=== PATIENT | female | born 1975 | race African-American/Black ===

== ENCOUNTER 2018-07-02 19:00 | Emergency (ER) | payer SELFPAY ==
[2018-07-02] MEDS ORDERED: ASPIRIN 81 MG CHEWABLE CTB ONE (19:06)
[2018-07-02] MEDS ORDERED: ASPIRIN 325 MG TAB PO ONE (19:06)
[2018-07-02 19:08] VITALS: TEMP 98.8
[2018-07-02 19:28] LABS: BASOPHILS % (AUTO) 1 % (0-3); EOSINOPHILS % (AUTO) 2 % (0-9); HEMATOCRIT 42 % (35-47); HEMOGLOBIN 13.4 gm/dl (12.0-15.5); LYMPHOCYTES % (AUTO) 42.1 % (10-50); MEAN CORPUSCULAR HEMOGLOBIN 29.4 pg (27.0-32.0); MEAN CORPUSCULAR HGB CONC 32.2 gm/dl (32.0-36.0); MEAN CORPUSCULAR VOLUME 91 fL (81-99); MONOCYTES % (AUTO) 9.6 % (0-12); NEUTROPHILS % (AUTO) 45.7 % (37-80)
[2018-07-02] MEDS: SODIUM CHLORIDE 0.9% FLUSH 10 ML SOL IV PRN ×2 (19:37→20:41)
[2018-07-02 19:39] LABS: ALBUMIN 3.8 gm/dl (3.4-5.0); ALKALINE PHOSPHATASE 56 IU/L (46-116); ALT 21 IU/L (14-63); AST 16 IU/L (15-37); BILIRUBIN,TOTAL 0.3 mg/dl (0.2-1.0); BLOOD UREA NITROGEN 10 mg/dl (7-18); CALCIUM 8.5 mg/dl (8.5-10.1); CARBON DIOXIDE 24.6 mEq/L (21-32); CHLORIDE 103 mMol/L (98-107); CREATININE 0.91 mg/dl (0.60-1.00); GLUCOSE 101 mg/dl (74-106); POTASSIUM 3.6 mMol/L (3.5-5.1); SODIUM 139 mMol/L (136-145); TOTAL PROTEIN 7.5 gm/dl (6.4-8.2); TROP I < 0.017 ng/ml (0.000-0.056)
[2018-07-02] MEDS ORDERED: ALUMINUM/MAGNESIUM 30 ML SUS PO ONE (20:21)
[2018-07-02] MEDS ORDERED: ALUMINUM/MAGNESIUM 30 ML SUS ONE (20:28)
[2018-07-02] MEDS ORDERED: PANTOPRAZOLE SODIUM 40 MG/10 ML PDS IV ONE (20:31)
[2018-07-02] MEDS ORDERED: PANTOPRAZOLE SODIUM 40 MG/10 ML PDS ONE (20:35)
[2018-07-02 23:14] VITALS: RESP 20
[2018-07-03 01:56] VITALS: BP 130/87; PULSE 87; O2SAT 99
== END 2018-07-03 01:45 | disposition home or self-care (01) | DRG 313 ==
LOC: ED 19:00
DX: R07.89 Other chest pain (principal); K21.9 Gastro-esophageal reflux disease without esophagitis
CPT/HCPCS: 36415; 71045; 80053; 84484; 84703; 85025; 85378; 93005; 96374; 99284; 99285; A9270-GY